=== PATIENT | male | born 1980 | race African-American/Black ===

== ENCOUNTER 2016-12-24 10:58 | Emergency (ER) | payer MEDICAID, SELFPAY ==
[2016-12-24 11:50] LABS: ALT (SGPT) 31 U/L (8-55); AST (SGOT) 44 U/L (5-34); Alkaline Phosphatase 68 U/L (40-150); Anion Gap 14 mmol/L (10-20); BUN (Urea Nitrogen) 11 mg/dL (8.9-20.6); Bilirubin, Total 0.2 mg/dL (0.2-1.2); CK (CPK) 1066 U/L (30-200); Calc. Creatinine Clearance 0 mL/min (70-130); Calcium 9.3 mg/dL (7.8-10.44); Carbon Dioxide 20 mmol/L (22-29); Chloride 108 mmol/L (98-107); Estimated GFR-MDRD Greater than 90; Globulin 4.1 g/dL (2.4-3.5); Magnesium 2.2 mg/dL (1.6-2.6); Protein, Total 8.2 g/dL (6.0-8.3)
[2016-12-24 11:52] LABS: Troponin I Less than 0.010 ng/mL (< 0.028)
[2016-12-24 11:58] LABS: #Basophils 0.1 thou/uL (0.0-0.2); #Eosinphils 0.5 thou/uL (0.0-0.7); #Monocytes 0.5 thou/uL (0.11-0.59); #Neutrophils 4.6 thou/uL (1.40-6.50); %Basophils 1.5 % (0.0-1.0); %Eosinophils 6.4 % (0.0-10.0); %Lymphocytes 25.7 % (21.0-51.0); Hematocrit 50.1 % (42.0-52.0); Mean Platelet Volume 8.3 fL (7.4-10.4); White Blood Cell (WBC) Count 7.7 thou/uL (4.8-10.8)
--- NOTE | 2016-12-28 18:40 | EKG ---
Test Reason : Blood Pressure : / mmHG Vent. Rate : 090 BPM Atrial Rate : 090 BPM P-R Int : 162 ms QRS Dur : 088 ms QT Int : 344 ms P-R-T Axes : 022 029 016 degrees QTc Int : 420 ms Normal sinus rhythm Normal ECG Confirmed by ELIZA HAQUE, ERON Mejia ([id number]), newspaper photo editor RONDA CRABTREE ([id number]) on 12/28/2016 6:40:28 PM Referred By: ELIZA Confirmed By:ERON KAY MD
== END 2016-12-24 12:20 | disposition home or self-care (01) ==
LOC: SCSER 10:58
DX: R00.2 Palpitations (principal); F17.210 Nicotine dependence, cigarettes, uncomplicated
CPT/HCPCS: 80053; 82550; 82553; 83735; 84443; 84484; 85025; 93005; 99406

== ENCOUNTER 2017-02-03 17:35 | Emergency (ER) | payer SELFPAY ==
[2017-02-03 18:25] LABS: #Basophils 0.1 thou/uL (0.0-0.2); #Eosinphils 0.6 thou/uL (0.0-0.7); #Lymphocytes 2.7 thou/uL (1.20-3.40); #Monocytes 0.5 thou/uL (0.11-0.59); %Eosinophils 7.5 % (0.0-10.0); %Lymphocytes 34.6 % (21.0-51.0); %Monocytes 5.9 % (0.0-10.0); Hematocrit 47.3 % (42.0-52.0); Mean Platelet Volume 8.4 fL (7.4-10.4); Red Blood Cell (RBC) Count 5.41 mill/uL (4.70-6.10); White Blood Cell (WBC) Count 7.8 thou/uL (4.8-10.8)
[2017-02-03 18:44] LABS: ALT (SGPT) 25 U/L (8-55); AST (SGOT) 31 U/L (5-34); Alkaline Phosphatase 71 U/L (40-150); Anion Gap 12 mmol/L (10-20); BUN (Urea Nitrogen) 18 mg/dL (8.9-20.6); Bilirubin, Total 0.2 mg/dL (0.2-1.2); Calc. Creatinine Clearance 0 mL/min (70-130); Calcium 9.2 mg/dL (7.8-10.44); Carbon Dioxide 23 mmol/L (22-29); Chloride 109 mmol/L (98-107); Estimated GFR-MDRD 65; Globulin 3.6 g/dL (2.4-3.5); Protein, Total 7.6 g/dL (6.0-8.3)
[2017-02-03 18:46] LABS: Troponin I Less than 0.010 ng/mL (< 0.028)
--- NOTE | 2017-02-03 19:46 | RAD ---
TWO VIEWS CHEST: History: Chest pain. Cardiac palpitations. FINDINGS: PA and lateral views obtained. The lungs are well aerated. No evidence of active intrathoracic disease seen. No evidence of effusion s, pneumonia, or pneumothorax is seen. IMPRESSION: Unremarkable two views chest. POS: [facility]
[2017-02-03 19:47] LABS: Amphetamine Not Detected (NotDetected); Methadone Not Detected (NotDetected); Methamphetamine Not Detected (NotDetected)
== END 2017-02-03 19:40 | disposition home or self-care (01) ==
LOC: SCSER 17:35
DX: R00.2 Palpitations (principal); N28.9 Disorder of kidney and ureter, unspecified; G51.0 Bell's palsy; F17.210 Nicotine dependence, cigarettes, uncomplicated
CPT/HCPCS: 36415; 71020; 80053; 80306; 82553; 84443; 84484; 85025; 93005; 99406

== ENCOUNTER 2018-07-09 09:34 | Emergency (ER) | payer MEDICARE | END 2018-07-09 10:42 | disposition home or self-care (01) | LOC: ERS 09:34 | DX: J20.9 Acute bronchitis, unspecified (principal); G51.0 Bell's palsy; F17.210 Nicotine dependence, cigarettes, uncomplicated; F32.9 Major depressive disorder, single episode, unspecified | CPT/HCPCS: 99283 ==